=== PATIENT | female | born 1980 | race Caucasian/White ===

== ENCOUNTER 2018-08-13 11:00 | Inpatient (IN) | payer BC ==
[2018-08-13 11:47] VITALS: BMI 40.7
[2018-08-13] MEDS: Lactated Ringer's 1,000 ML IV SCH ×2 (12:24→20:41)
[2018-08-13] MEDS ORDERED: NS w/ Oxytocin 10 units 500 ML ONE (12:47)
[2018-08-13] MEDS ORDERED: Ondansetron PF 4 MG/2 ML Vial IVP PRN (12:51)
[2018-08-13] MEDS ORDERED: Butorphanol Tartrate 1 MG/ML VIAL SLOW IVP PRN (12:51)
[2018-08-13] MEDS ORDERED: Promethazine HCl 25 MG/ML VIAL IM PRN (12:51)
[2018-08-13] MEDS ORDERED: HYDROcodone/Acetaminophen 5/325 mg Tablet PO PRN ×2 (12:51)
[2018-08-13] MEDS ORDERED: Ibuprofen 800 MG TAB PO PRN (12:51)
[2018-08-13] MEDS ORDERED: Acetaminophen 500 MG TAB PO PRN (12:51)
[2018-08-13] MEDS ORDERED: NS / Oxytocin 40 units/1000ml 1,000 ML IV PRN (12:51)
[2018-08-13] MEDS ORDERED: Lidocaine 1% (PF) 30 ML VIAL SC PRN (12:51)
--- NOTE | 2018-08-13 12:55 | PDOC.LDHP ---
Labor and Delivery H&P Chief complaint: scheduled induction (for preeclampsia without severe features) HPI: Pt presented to office w mild range BP and 1+ protein, sent to L and D for IOL. No HOG TRADER sx. Current gestational age (weeks): 38 Due date: 08/24/18 Dating criteria: last menstrual period, first trimester ultrasound Grav: 1 Para: 0 Current complications: preeclampsia without severe features Abnormal US findings: No Past Medical History: hypothyroid depression Current medications: other (PNV, lamictal, escitalopram, levothyroxine) Previous surgical history: none Allergies/Adverse Reactions: Allergies Allergy/AdvReac Type Severity Reaction Status Date / Time No Known Drug Allergies Allergy Verified 08/13/18 11:39 Social history: none - Physical Exam Vital signs reviewed and normal: yes (BP 140/80s on intake) General: NAD, resting Heart: RRR Lungs: CTAB Abdomen: gravid Extremeties: no edema FHT: category 1 - Vaginal Exam cm dilated: 2 Effacement: 75% Station: -2 - OB Labs Blood type: AB RH: positive Antibody Screen: negative HIV: negative RPR: negative HEPSAg: negative 1 hour GCT: negative GBS: negative Rubella: immune Additional Labs: NIPT and AFP low risk - Assessment L&D Assessment: medically indicated induction - Plan Plan: admit to L&D, cervical ripening, labor augmentation if indicated, informed consent obtained, anesthesia consult for pain management -: A/P: G1 @ 38+ weeks IOL for PIH without severe features at this time, discussed initiation of magnesium if severe features noted during labor. Plan for pitocin and AROM, epidural at pt request.
[2018-08-13] MEDS ORDERED: NS w/ Oxytocin 10 units 500 ML IV SCH (13:00)
[2018-08-13 13:07] LABS: Hemoglobin 11.6 g/dL (12.0-16.0); Mean Corpuscular HGB CONC 34.5 g/dL (32.0-36.0); Mean Corpuscular Hemoglobin 28.5 pg (27.0-31.0); Mean Corpuscular Volume 82.5 fL (78.0-98.0); Mean Platelet Volume 8.7 fL (7.4-10.4); Platelet Count 218 thou/uL (130-400); RBC Distribution Width 13.6 % (11.5-14.5); Red Blood Cell (RBC) Count 4.08 mill/uL (4.20-5.40); White Blood Cell (WBC) Count 10.7 thou/uL (4.8-10.8)
[2018-08-13 13:47] LABS: ALT (SGPT) Less than 7 U/L (8-55); AST (SGOT) 10 U/L (5-34); Albumin 3.1 g/dL (3.5-5.0); Alkaline Phosphatase 126 U/L (40-150); Anion Gap 15 mmol/L (10-20); BUN (Urea Nitrogen) 10 mg/dL (7.0-18.7); Bilirubin, Total 0.3 mg/dL (0.2-1.2); Calc. Creatinine Clearance 187 mL/min (70-130); Carbon Dioxide 19 mmol/L (22-29); Chloride 107 mmol/L (98-107); Estimated GFR-MDRD Greater than 90; Globulin 3.6 g/dL (2.4-3.5); Glucose 92 mg/dL (70-105); Potassium 3.7 mmol/L (3.5-5.1); Protein, Total 6.7 g/dL (6.0-8.3); Sodium 137 mmol/L (136-145)
[2018-08-13 13:51] LABS: HBSAg Index 0.18 S/CO (0-0.99); Hep B Surf Ag Non-Reactive S/CO (NonReactive)
[2018-08-13 13:52] LABS: Syphilis Antibody Nonreactive (Nonreactive); Syphilis Antibody Index 0.04 S/CO (<1.00 Non-Reactive)
--- NOTE | 2018-08-13 17:02 | PDOC.LDPN ---
Labor & Delivery Progress Note - Subjective Subjective: comfortable - Objective Vital signs reviewed and normal: yes General: NAD Uterine fundus: non tender Dilation: 2 Effacement: 75% Station: -2 FHT: category 1 [place] contractions every: 2 AROM: clear fluid - Assessment (1) 38 weeks gestation of Code(s): Z3A.38 - 38 WEEKS GESTATION OF Current Visit: Yes Status : Acute (2) Preeclampsia Code(s): O14.90 - UNSPECIFIED PRE-ECLAMPSIA, UNSPECIFIED TRIMESTER Current Visit: Yes Status: Acute (3) Advanced maternal age (AMA) in Code(s): [id number] - Current Visit: Yes Status: Acute Plan: continue plan of care
[2018-08-13] MEDS: hydrALAZINE 20 MG/ML VIAL SLOW IVP PRN (18:46)
[2018-08-13] MEDS ORDERED: Magnesium Sulfate 20 gm/500 ml 20 GM/500 ML BAG ONE (19:06)
[2018-08-13] MEDS ORDERED: Fentanyl 4 mcg/Bup 0.1% Cadd 100 ML ONE (19:37)
[2018-08-13] MEDS ORDERED: Lidocaine 1.5% w/Epi 1:200K 30 ML VIAL (Epid Use) ONE ×2 (20:09→20:10)
[2018-08-13] MEDS ORDERED: Magnesium Sulfate 20 gm/500 ml 20 GM/500 ML BAG IVPB PRN (21:45)
[2018-08-13] MEDS ORDERED: Magnesium Sulfate 20 gm/500 ml 4 GM/100 ML BAG IVPB ONE (21:45)
[2018-08-14] MEDS ORDERED: Lactated Ringer's 500 ML IV PRN (00:21)
[2018-08-14] MEDS ORDERED: Acetaminophen 325 MG TAB PO PRN ×2 (00:21→09:46)
[2018-08-14] MEDS ORDERED: Promethazine HCl 25 MG/ML VIAL IM PRN ×2 (00:21→09:48)
[2018-08-14] MEDS ORDERED: Naloxone HCl 0.4 mg/ml Vial IVP PRN ×4 (00:21→09:48)
[2018-08-14] MEDS ORDERED: Hydrocerin (Eucerin) Cream 120 gm Jar TOP PRN (00:21)
[2018-08-14] MEDS ORDERED: ePHEDrine/0.9% NaCl/PF SYRINGE 50 mg/10 ml SLOW IVP PRN (00:21)
[2018-08-14] MEDS ORDERED: Ondansetron PF 4 MG/2 ML Vial IVP PRN ×3 (00:21→09:48)
[2018-08-14] MEDS ORDERED: diphenhydrAMINE 50 MG/ML VIAL IVP PRN ×2 (00:21→09:48)
[2018-08-14] MEDS ORDERED: Communication Order-Pharmacy FS SCH ×2 (00:30→10:00)
[2018-08-14] MEDS ORDERED: Fentanyl 4 mcg/Bupivacaine 0.1% Cassette 100 ML EPIDURAL SCH (00:30)
[2018-08-14] MEDS ORDERED: Fentanyl 4 mcg/Bup 0.1% Cadd 100 ML ONE ×2 (02:42→08:10)
[2018-08-14] MEDS: hydrALAZINE 20 MG/ML VIAL SLOW IVP PRN ×3 (03:12→21:52)
[2018-08-14] MEDS: Lactated Ringer's 1,000 ML IV SCH ×2 (08:14→15:20)
[2018-08-14] MEDS: NS w/ Oxytocin 10 units 500 ML IV SCH ×2 (08:14→15:20)
--- NOTE | 2018-08-14 08:29 | PDOC.LDPN ---
Labor & Delivery Progress Note - Subjective Subjective: comfortable - Objective Vital signs reviewed and normal: yes Abnormal vital signs: severe range BP over night General: NAD Uterine fundus: non tender Dilation: 8 Effacement: 90% Station: -1 FHT: category 1 [place] contractions every: 2-3 - Assessment (1) 38 weeks gestation of Code(s): Z3A.38 - 38 WEEKS GESTATION OF Current Visit: Yes Status : Acute (2) Preeclampsia Code(s): O14.90 - UNSPECIFIED PRE-ECLAMPSIA, UNSPECIFIED TRIMESTER Current Visit: Yes Status: Acute (3) Advanced maternal age (AMA) in Code(s): NSW2812 - Current Visit: Yes Status: Acute (4) Labor abnormality Code(s): O62.9 - ABNORMALITY OF FORCES OF LABOR, UNSPECIFIED Current Visit: Yes Status: Acute Plan: other -: 1. IOL for preeclampsia with magnesium started approx 1999 last night for sustained severe range BP, IV antihypertensive PRN severe range BP 2. Protracted labor-pt noted to be 8cm @ 0300, is 8cm and -1 with caput on exam now. Discussed CS now vs recheck in an hour with patient. Pt would like one more hour to see if cervical change can be achieved. Pt aware of risk and benefits of continued pitocin as well as 1CS. Will recheck in an hour and if unchanged to OR for 1CS.
[2018-08-14] MEDS ORDERED: Lidocaine 2% 10 ML INJ ONE (09:20)
[2018-08-14] MEDS ORDERED: Oxytocin 10 UNITS/ML VIAL ONE (09:24)
[2018-08-14] MEDS ORDERED: CEFAZOLIN 2 GM/50 ML BAG ONE (09:29)
[2018-08-14] MEDS ORDERED: Bicitra 30 ML UDCUP ONE (09:29)
[2018-08-14] MEDS ORDERED: Morphine PF 1 MG/ML SYR ONE (09:43)
[2018-08-14] MEDS ORDERED: Ropivacaine 0.2% 550 ML 750 ML NERVE BLCK SCH (09:45)
[2018-08-14] MEDS ORDERED: CEFAZOLIN/Water 2 GM/20 ML SYRINGE SLOW IVP SCH (09:45)
[2018-08-14] MEDS ORDERED: Bicitra 30 ML UDCUP PO SCH (09:45)
[2018-08-14] MEDS ORDERED: Bisacodyl 10 MG SUPP PR PRN (09:46)
[2018-08-14] MEDS ORDERED: diphenhydrAMINE 25 MG CAP PO PRN (09:46)
[2018-08-14] MEDS ORDERED: Calcium Gluconate 4.6 MEQ in Sodium Chloride 0.9% 100 ML IVPB PRN (09:46)
[2018-08-14] MEDS ORDERED: Simethicone Chewable 80 MG TAB PO PRN (09:46)
[2018-08-14] MEDS ORDERED: Adacel (T-DAP) 0.5 ML SYRINGE IM ONE (09:46)
[2018-08-14] MEDS ORDERED: Lanolin Ointment 7 GM TUBE TOP PRN (09:46)
[2018-08-14] MEDS ORDERED: Promethazine HCl 25 MG SUPP PR PRN (09:48)
[2018-08-14] MEDS ORDERED: HYDROmorphone 2 MG/ML VIAL SLOW IVP PRN (09:48)
[2018-08-14] MEDS ORDERED: Meperidine HCl/PF 25 MG/ML VIAL SLOW IVP PRN (09:48)
[2018-08-14] MEDS ORDERED: Eucerin (Mineral Oil/Petrolatum,White) 30 gm Jar TOP PRN (09:48)
[2018-08-14] MEDS ORDERED: Ondansetron HCl/PF 4 MG/2 ML Vial IVP PRN (09:48)
[2018-08-14] MEDS ORDERED: L&D-Morphine 4 MG/ML VIAL SLOW IVP PRN (09:48)
[2018-08-14] MEDS ORDERED: Naloxone HCl 0.4 mg/ml Vial IV PRN (09:48)
[2018-08-14] MEDS ORDERED: ePHEDrine/0.9% NaCl/PF SYRINGE 50 mg/10 ml ONE ×2 (09:55→13:09)
[2018-08-14] MEDS ORDERED: Bupivacaine 0.25% HCL 30 ML VIAL ONE (09:58)
[2018-08-14] MEDS ORDERED: Ketorolac Tromethamine 30 MG/ML VIAL IVP SCH (10:00)
[2018-08-14] MEDS ORDERED: NS / Oxytocin 40 units/1000ml 1,000 ML IV SCH (10:00)
[2018-08-14] MEDS ORDERED: Ropivacaine HCl/PF 750 ML in Premix Bag 1 BAG NERVE BLCK SCH (10:30)
--- NOTE | 2018-08-14 11:08 | PDOC.OPDEL ---
OB Operative/Delivery Note Delivery Dr/Surgeon: Seun Assist: Dashawn Pre-Delivery Diagnosis: medically indicated induction (severe PIH @ 38 weeks, arrest of active phase @ 8cm) Weeks gestation: 38 Anesthesia: epidural - Findings A Sex: male Weight: 5 lb 11 oz - 1 min: 6 - 5 min: 8 - Additional Findings/Plan Placenta delivered: manual removal findings: low transverse hysterotomy with extension (to left corner laterally) Estimated blood loss: EBL 800ml Compilations/Other Findings: left corner extension laterally, repaired w series of interrupted figure of 8 sutures. Floseal placed w hemostasis noted. Post delivery plan: recovery in LICU (w magnesium for 24hrs PP)
[2018-08-14] MEDS ORDERED: Azithromycin 1,000 MG in Sodium Chloride 0.9% 500 ML IVPB SCH (12:00)
[2018-08-14] MEDS: Magnesium Sulfate 20 gm/500 ml 20 GM/500 ML BAG IVPB SCH (14:19)
[2018-08-14] MEDS ORDERED: Ketorolac Tromethamine 30 MG/ML VIAL ONE (15:16)
[2018-08-14] MEDS: Ketorolac Tromethamine 30 MG/ML VIAL IVP PRN ×2 (15:18→23:42)
[2018-08-14] MEDS: Ibuprofen 800 MG TAB PO SCH (15:19)
[2018-08-14 15:25] LABS: Hemoglobin 10.6 g/dL (12.0-16.0); Mean Corpuscular HGB CONC 32.5 g/dL (32.0-36.0); Mean Corpuscular Hemoglobin 27.6 pg (27.0-31.0); Mean Corpuscular Volume 84.9 fL (78.0-98.0); Mean Platelet Volume 8.2 fL (7.4-10.4); Platelet Count 217 thou/uL (130-400); RBC Distribution Width 13.8 % (11.5-14.5); Red Blood Cell (RBC) Count 3.84 mill/uL (4.20-5.40)
[2018-08-14 15:55] LABS: ALT (SGPT) Less than 7 U/L (8-55); AST (SGOT) 14 U/L (5-34); Albumin 2.8 g/dL (3.5-5.0); Alkaline Phosphatase 122 U/L (40-150); Anion Gap 15 mmol/L (10-20); BUN (Urea Nitrogen) 6 mg/dL (7.0-18.7); Bilirubin, Total 0.5 mg/dL (0.2-1.2); Calc. Creatinine Clearance 170 mL/min (70-130); Calcium 7.3 mg/dL (7.8-10.44); Carbon Dioxide 16 mmol/L (22-29); Chloride 106 mmol/L (98-107); Estimated GFR-MDRD 82; Globulin 3.3 g/dL (2.4-3.5); Glucose 124 mg/dL (70-105); Potassium 3.9 mmol/L (3.5-5.1); Protein, Total 6.1 g/dL (6.0-8.3); Sodium 133 mmol/L (136-145)
--- NOTE | 2018-08-14 17:35 | OP ---
DATE OF PROCEDURE: 08/14/2018 PREOPERATIVE DIAGNOSES: 1. A 38-year-old G1 at 38 weeks gestation. 2. Preeclampsia with severe features on magnesium for seizure prophylaxis. 3. Advanced maternal age. 4. Arrest of active phase at 8 cm. POSTOPERATIVE DIAGNOSES: 1. A 38-year-old G1 at 38 weeks gestation. 2. Preeclampsia with severe features on magnesium for seizure prophylaxis. 3. Advanced maternal age. 4. Arrest of active phase at 8 cm. PROCEDURES PERFORMED: 1. Primary low transverse section. 2. Placement of On-Q nerve block pump. INVENTORY CONTROL SPECIALIST: Joseph Tamez MD. ANESTHESIA: Epidural. ANESTHESIOLOGIST: Dr. Ng. COMPLICATIONS: None. ESTIMATED BLOOD LOSS: 800 mL. QBL: Pending. FINDINGS: 1. Low transverse hysterotomy with extension of the left corner out laterally, repaired with at time of hysterotomy closure. 2. Normal-appearing tubes and ovaries. 3. Uterus with multiple serosal fibroids, largest approximately 1 cm. 4. Male . Apgars 6, 8, and 9. Weight 5 pounds and 11 ounces, to [facility]. 5. Surgical site, hemostatic. DESCRIPTION OF PROCEDURE: The patient was taken back to the OR with IV fluids running, and an epidural catheter that was previously placed. When she was in the OR, she was placed in dorsal supine position with a left lateral tilt. The abdomen was prepped and draped in normal fashion for section. After the abdomen was prepped and draped, the surgeons were scrubbed in and anesthesia was tested and found to be adequate. A Pfannenstiel skin incision was made with a scalpel. Skin incision was carried down through the subcutaneous layer until the fascia was reached. Once the fascia was reached, it was incised in superior lateral fashion using curved Brizuela scissors. Megan clamps were then placed at the superior border of the fascia, which was sharply and bluntly dissected off the rectus abdominis muscles in both caudad and cephalad direction allowing adequate space for delivery of the infant. The rectus muscles were bluntly entered. The peritoneum was bluntly entered and laterally. The Tito O retractor was placed into the peritoneal cavity for retraction, visualization, and protection of the wound. A bladder flap was created and the bladder was dissected away from the planned hysterotomy site. A low transverse hysterotomy was made with the scalpel. The hysterotomy was bluntly entered and stretched using the Irelnad maneuver. The was delivered without difficulty from the occiput posterior position through the hysterotomy. The cord was doubly clamped and cut. The nose and mouth were suctioned. The was handed off to special care nurses in attendance. Cord blood was collected. The placenta was delivered. Uterus was exteriorized, massaged to firm, and cleared of clot and debris with a clean dry sponge. The hysterotomy was inspected with an extension noted from the left lateral corner of the hysterotomy. Ring forceps clamps were placed over the corners of the incision for hemostasis. The hysterotomy was repaired using Monocryl suture in a running locked fashion. After the hysterotomy was closed, the left corner was inspected with a small area of bleeding noted at the serosa. Two additional [id number] sutures were placed in this corner with hemostasis noted. The hysterotomy was irrigated and suctioned dry. The hysterotomy was inspected again. FloSeal was applied to the left corner of the hysterotomy as well as along the hysterotomy site. Pressure was applied with a clean sponge and held for 3 minutes as prescribed. After 3 minutes, the clean sponge was lifted. The hysterotomy was inspected and no bleeding was noted. The Tito O retractor was removed from the abdominal cavity. The peritoneum was reapproximated with plain gut suture. The fascia and muscle were inspected with no areas of bleeding noted. Two On-Q catheter tips were placed through the subcutaneous tissues, through the fascia, and directed down toward the corners of the incision underneath the rectus fascia. The rectus fascia was then closed with PDS suture from corner to corner and tied separately in the midline. The On-Q catheters were primed with 0.25% Marcaine. The subcutaneous tissue was irrigated and dried. Any small areas of bleeding were controlled with Bovie cauterization. The subcutaneous tissue was reapproximated with plain gut suture. The skin was closed with 4-0 Monocryl and dressed with Dermabond dressing. The On-Q catheter tips were given as sterile dressing. The patient tolerated the procedure well. Ancef as well as azithromycin were ordered for surgical prophylaxis with the Ancef given during the case and azithromycin pending at the end of the case. The patient will remain on magnesium for seizure prophylaxis for approximately 24 hours and she has labs ordered for 1500 today to follow up her CBC and CMP as well as a magnesium level. Job ID: [id number]
--- NOTE | 2018-08-14 20:14 | OP ---
DATE OF PROCEDURE: 08/14/2018 The patient is a 38-year-old female who had a primary for arrest of labor. Primary surgeon is Dr. Sanjiv Kohli, please refer to her operative note for complete details. I functioned as commercial loan assistant. Job ID: [id number]
[2018-08-14] MEDS ORDERED: Docusate Calcium (SURFAK) 240 MG CAP PO SCH (21:00)
[2018-08-14] MEDS ORDERED: DOCOSAHEXAENOIC ACID PO SCH (21:00)
[2018-08-14] MEDS ORDERED: Meperidine HCl/PF 25 MG/ML VIAL IM PRN (22:00)
[2018-08-14] MEDS ORDERED: HYDROcodone/Acetaminophen 5/325 mg Tablet PO PRN ×2 (22:00)
[2018-08-15] MEDS: Magnesium Sulfate 20 gm/500 ml 20 GM/500 ML BAG IVPB SCH (00:13)
[2018-08-15] MEDS: Lactated Ringer's 1,000 ML IV SCH (03:18)
--- NOTE | 2018-08-15 08:18 | PDOC.PP ---
Post Progress Note Post Day #: 1 Subjective: doing well, no NV w clears, no CORRALES or blurry vision, just tired from Mag PO intake tolerated: yes Flatus: yes Ambulation: yes Vital Signs (12 hours) Pulse BP 08/14/18 21:52 96 187/88 H Weight Weight 245 lb MIld range BP since midnight. - Physical Examination General: NAD Respiratory: non-labored breathing Abdominal: no distention Fundus firm & at: below umb Skin: CS incision dry & intact, no rash Neurological: no gross focal deficits Psychiatric: A&Ox3, normal affect Result Diagrams: 08/14/18 15:05 08/14/18 15:05 Additional Labs: Post Labs Blood Type AB POSITIVE 08/13/18 12:24 Hep Bs Antigen Non-Reactive S/CO (NonReactive) 08/13/18 12:24 (1) 38 weeks gestation of Code(s): Z3A.38 - 38 WEEKS GESTATION OF Status: Acute (2) Preeclampsia Code(s): O14.90 - UNSPECIFIED PRE-ECLAMPSIA, UNSPECIFIED TRIMESTER Status: Acute (3) Advanced maternal age (AMA) in Code(s): [id number] - Status: Acute (4) Labor abnormality Code(s): O62.9 - ABNORMALITY OF FORCES OF LABOR, UNSPECIFIED Status: Acute - Assessment/Plan POD1 sp 1CS for arrest @ 8cm, nearing 24hrs PP magnesium for preeclampsia w severe features. Labs stable. Plan to DC mag this AM and advance orders. Will monitor for potential oral antihypertensive medication need.
[2018-08-15] MEDS ORDERED: Prenatal Vitamin 1 TAB PO SCH ×3 (09:00→09:12)
[2018-08-15 09:10] LABS: Hemoglobin 10.1 g/dL (12.0-16.0); Mean Corpuscular HGB CONC 33.1 g/dL (32.0-36.0); Mean Corpuscular Hemoglobin 27.7 pg (27.0-31.0); Mean Corpuscular Volume 83.7 fL (78.0-98.0); Platelet Count 201 thou/uL (130-400); Red Blood Cell (RBC) Count 3.65 mill/uL (4.20-5.40); White Blood Cell (WBC) Count 11.5 thou/uL (4.8-10.8)
[2018-08-15] MEDS ORDERED: HYDROcodone/Acetaminophen 5/325 mg Tablet PO PRN (09:12)
[2018-08-15] MEDS ORDERED: Adacel (T-DAP) 0.5 ML SYRINGE IM ONE (09:12)
[2018-08-15] MEDS ORDERED: Ondansetron PF 4 MG/2 ML Vial IVP PRN (09:12)
[2018-08-15] MEDS ORDERED: Simethicone Chewable 80 MG TAB PO PRN (09:12)
[2018-08-15] MEDS ORDERED: Ferrous Sulfate 325 MG TAB PO SCH (09:12)
[2018-08-15] MEDS ORDERED: Bisacodyl 10 MG SUPP PR PRN (09:12)
[2018-08-15] MEDS: HYDROcodone/Acetaminophen 5/325 mg Tablet PO PRN ×2 (13:46→21:28)
[2018-08-15] MEDS: Ibuprofen 800 MG TAB PO SCH ×2 (13:47→21:26)
[2018-08-15] MEDS: Escitalopram Oxalate 10 mg Tablet PO SCH ×2 (14:10→21:31)
[2018-08-15] MEDS: lamoTRIgine 25 MG TAB PO SCH ×3 (14:11→21:31)
[2018-08-15] MEDS: Docusate Calcium (SURFAK) 240 MG CAP PO SCH ×2 (14:11→21:26)
[2018-08-15] MEDS: Levothyroxine Sodium 50 MCG TAB PO SCH (14:11)
[2018-08-15] MEDS: Ferrous Sulfate 325 MG TAB PO SCH (21:27)
--- NOTE | 2018-08-16 06:21 | PDOC.PP ---
Post Progress Note Post Day #: 2 Subjective: Doing well. Pain well controlled with on Q pump. Ambulating, tolerating PO. PO intake tolerated: yes Flatus: yes Ambulation: yes Vital Signs (12 hours) Temp Pulse Resp BP Pulse Ox 08/16/18 03:55 98.1 F 79 20 146/86 H 08/15/18 19:55 98.2 F 86 16 136/72 95 Weight Weight 245 lb - Physical Examination General: NAD Respiratory: non-labored breathing Abdominal: lochia (normal), no distention, appropriately TTP Fundus firm & at: below umbilicus Extremities: negative homans (B) Skin: CS incision dry & intact, no rash Neurological: no gross focal deficits Psychiatric: A&Ox3, normal affect Result Diagrams: 08/15/18 08:26 08/14/18 15:05 Additional Labs: Post Labs Blood Type AB POSITIVE 08/13/18 12:24 Hep Bs Antigen Non-Reactive S/CO (NonReactive) 08/13/18 12:24 (1) 38 weeks gestation of Code(s): Z3A.38 - 38 WEEKS GESTATION OF Status: Acute (2) Advanced maternal age (AMA) in Code(s): [id number] - Status: Acute (3) Labor abnormality Code(s): O62.9 - ABNORMALITY OF FORCES OF LABOR, UNSPECIFIED Status: Acute (4) Preeclampsia Code(s): O14.90 - UNSPECIFIED PRE-ECLAMPSIA, UNSPECIFIED TRIMESTER Status: Acute - Assessment/Plan Doing well. BPs mild range. Continue to monitor. Anticipate d/c tomorrow.
[2018-08-16] MEDS: Ibuprofen 800 MG TAB PO SCH ×3 (08:18→20:59)
[2018-08-16] MEDS: Escitalopram Oxalate 10 mg Tablet PO SCH ×2 (08:18→21:01)
[2018-08-16] MEDS: lamoTRIgine 25 MG TAB PO SCH ×2 (08:18→21:00)
[2018-08-16] MEDS: Levothyroxine Sodium 50 MCG TAB PO SCH (08:18)
[2018-08-16] MEDS: Ferrous Sulfate 325 MG TAB PO SCH ×2 (08:19→21:01)
[2018-08-16] MEDS: Prenatal Vitamin 1 TAB PO SCH (10:19)
[2018-08-16] MEDS: Docusate Calcium (SURFAK) 240 MG CAP PO SCH ×2 (10:19→20:58)
[2018-08-16] MEDS: HYDROcodone/Acetaminophen 5/325 mg Tablet PO PRN (12:10)
[2018-08-16] MEDS ORDERED: NIFEdipine 10 MG CAP PO SCH (17:15)
--- NOTE | 2018-08-16 17:17 | PDOC.EVN ---
Event Note - Event Note Event Note: SHARON Ascencio: I was just called that the patient's BP has a systolic pressure of 180. No CORRALES. I will give procardia 10mg po x 1 now and do serial BPs for now. If not better, I will restart MagSulfate. I will order CMP and CBC now as well.
--- NOTE | 2018-08-16 18:03 | PDOC.EVN ---
Event Note - Event Note Event Note: BPs better after procardia..systolics at 130s to 140s.
[2018-08-16 18:42] LABS: Hemoglobin 10.1 g/dL (12.0-16.0); Mean Corpuscular HGB CONC 32.4 g/dL (32.0-36.0); Mean Corpuscular Hemoglobin 27.3 pg (27.0-31.0); Mean Corpuscular Volume 84.5 fL (78.0-98.0); Mean Platelet Volume 7.7 fL (7.4-10.4); Platelet Count 261 thou/uL (130-400); RBC Distribution Width 13.7 % (11.5-14.5); Red Blood Cell (RBC) Count 3.68 mill/uL (4.20-5.40); White Blood Cell (WBC) Count 12.1 thou/uL (4.8-10.8)
[2018-08-16 19:03] LABS: ALT (SGPT) 7 U/L (8-55); AST (SGOT) 13 U/L (5-34); Albumin 3.1 g/dL (3.5-5.0); Alkaline Phosphatase 112 U/L (40-150); Anion Gap 16 mmol/L (10-20); BUN (Urea Nitrogen) 6 mg/dL (7.0-18.7); Bilirubin, Total 0.5 mg/dL (0.2-1.2); Calc. Creatinine Clearance 187 mL/min (70-130); Calcium 8.7 mg/dL (7.8-10.44); Carbon Dioxide 20 mmol/L (22-29); Chloride 105 mmol/L (98-107); Estimated GFR-MDRD Greater than 90; Globulin 3.7 g/dL (2.4-3.5); Glucose 91 mg/dL (70-105); Potassium 4.1 mmol/L (3.5-5.1); Protein, Total 6.8 g/dL (6.0-8.3); Sodium 137 mmol/L (136-145)
--- NOTE | 2018-08-16 19:04 | PDOC.EVN ---
Event Note - Event Note Event Note: Labs ok
--- NOTE | 2018-08-17 00:12 | PDOC.EVN ---
Event Note - Event Note Event Note: BPs at 140/80s...asx. Isolated severe reading has not recurred.
[2018-08-17] MEDS: Ibuprofen 800 MG TAB PO SCH ×4 (03:06→21:54)
--- NOTE | 2018-08-17 05:09 | PDOC.PP ---
Post Progress Note Post Day #: 3 Subjective: No CORRALES, no visual changes, no RUQ PO intake tolerated: yes Flatus: yes Ambulation: yes Vital Signs (12 hours) Temp Pulse Resp BP 08/17/18 03:00 98.1 F 86 18 129/66 08/16/18 19:03 91 18 141/77 H 08/16/18 18:30 79 141/75 H 08/16/18 18:15 82 141/76 H 08/16/18 18:00 84 20 140/76 08/16/18 17:46 89 142/74 H 08/16/18 17:23 78 139/85 Weight Weight 245 lb - Physical Examination General: NAD Cardiovascular: no m/r/g Respiratory: clear to auscultation bilaterally Abdominal: + bowel sounds, lochia, no distention, appropriately TTP Extremities: negative homans (B) Skin: CS incision dry & intact (sutured), no rash Neurological: no gross focal deficits Psychiatric: A&Ox3, normal affect Result Diagrams: 08/16/18 18:12 08/16/18 18:12 Additional Labs: Post Labs Blood Type AB POSITIVE 08/13/18 12:24 Hep Bs Antigen Non-Reactive S/CO (NonReactive) 08/13/18 12:24 (1) delivery delivered Code(s): O82 - ENCOUNTER FOR DELIVERY WITHOUT INDICATION Status: Acute (2) Preeclampsia Code(s): O14.90 - UNSPECIFIED PRE-ECLAMPSIA, UNSPECIFIED TRIMESTER Status: Acute - Assessment/Plan A/P: POD 3 s/p Primary CS...one isolated high BP yesterday RX with procardia 10mg po X1...no other severe BPs, now at 130/90s- 140/90s: We will monitor BPs today and if below 150/90 by 1700, we will discharge to home with BP check in 72 hrs.
[2018-08-17] MEDS ORDERED: Lanolin Ointment 7 GM TUBE TOP PRN (06:29)
[2018-08-17] MEDS: Levothyroxine Sodium 50 MCG TAB PO SCH (06:30)
[2018-08-17] MEDS: Docusate Calcium (SURFAK) 240 MG CAP PO SCH ×2 (09:30→21:54)
[2018-08-17] MEDS: Escitalopram Oxalate 10 mg Tablet PO SCH ×2 (09:30→21:55)
[2018-08-17] MEDS: Prenatal Vitamin 1 TAB PO SCH (18:54)
[2018-08-17] MEDS: lamoTRIgine 25 MG TAB PO SCH ×2 (18:54→21:55)
[2018-08-17] MEDS: Ferrous Sulfate 325 MG TAB PO SCH ×2 (18:54→21:55)
[2018-08-17] MEDS: Labetalol 100 MG TAB PO SCH (19:57)
[2018-08-18] MEDS: Levothyroxine Sodium 50 MCG TAB PO SCH (06:20)
[2018-08-18] MEDS: Ibuprofen 800 MG TAB PO SCH ×2 (06:21→14:11)
[2018-08-18] MEDS: Ferrous Sulfate 325 MG TAB PO SCH (07:31)
[2018-08-18 07:38] VITALS: TEMP 97.9
--- NOTE | 2018-08-18 08:02 | PDOC.PP ---
Post Progress Note Post Day #: 4 Subjective: Doing well, no complaints this morning. PO intake tolerated: yes Flatus: yes Ambulation: yes Vital Signs (12 hours) Temp Pulse Resp BP BP Pulse Ox 08/18/18 07:38 97.9 F 84 20 156/80 H 97 08/18/18 03:29 156/74 H 08/18/18 01:12 141/71 H 08/17/18 22:38 137/69 08/17/18 20:30 98.6 F 89 18 157/82 H 100 Weight Weight 245 lb - Physical Examination General: NAD Respiratory: non-labored breathing Abdominal: lochia (normal), no distention, appropriately TTP Fundus firm & at: below umbilicus Extremities: negative homans (B) Skin: CS incision dry & intact, no rash Neurological: no gross focal deficits Psychiatric: A&Ox3, normal affect Result Diagrams: 08/16/18 18:12 08/16/18 18:12 Additional Labs: Post Labs Blood Type AB POSITIVE 08/13/18 12:24 Hep Bs Antigen Non-Reactive S/CO (NonReactive) 08/13/18 12:24 (1) 38 weeks gestation of Code(s): Z3A.38 - 38 WEEKS GESTATION OF Status: Acute (2) Advanced maternal age (AMA) in Code(s): [id number] - Status: Acute (3) Labor abnormality Code(s): O62.9 - ABNORMALITY OF FORCES OF LABOR, UNSPECIFIED Status: Acute (4) Preeclampsia Code(s): O14.90 - UNSPECIFIED PRE-ECLAMPSIA, UNSPECIFIED TRIMESTER Status: Acute - Assessment/Plan Started Labetalol 100mg BID yesterday. BPs improved overnight. Continue to monitor with possible d/c later this evening.
[2018-08-18] MEDS: Prenatal Vitamin 1 TAB PO SCH (09:14)
[2018-08-18] MEDS: Labetalol 100 MG TAB PO SCH (09:14)
[2018-08-18] MEDS: Docusate Calcium (SURFAK) 240 MG CAP PO SCH (09:14)
[2018-08-18] MEDS: lamoTRIgine 25 MG TAB PO SCH (09:14)
[2018-08-18] MEDS: Escitalopram Oxalate 10 mg Tablet PO SCH (09:14)
[2018-08-18 17:02] VITALS: BP 147/77
--- NOTE | 2018-08-19 01:33 | DIS ---
DATE OF ADMISSION: 08/13/2018 DATE OF DISCHARGE: 08/18/2018 ADMITTING DIAGNOSES: 1. Intrauterine at 38 weeks. 2. Preeclampsia without severe features. DISCHARGE DIAGNOSES: Preeclampsia with severe features, non-reassuring arrest of labor, primary . PROCEDURE: Primary . PRIMARY PROVIDER: Sanjiv Kohli DO, MS CONSULTATIONS: None. HOSPITAL COURSE: The patient is a 38-year-old female, who presented for a scheduled induction of labor at 38 weeks gestation for preeclampsia without severe features. Her induction was complicated by arrest of labor at 8 cm and preeclampsia with severe features requiring a primary . For complete details, please refer to Dr. Kohli's operative note. Her course has been complicated with 24 hours of magnesium for seizure prophylaxis and severe range of blood pressures requiring medication intervention. Last night on postoperative day #3, the patient was started on labetalol 100 mg twice a day for blood pressure control. The patient's blood pressure since that time has remained in the normal to mild range. Her most recent blood pressure was in the 140s/70s, pulse in the 90s, respiratory rate 20. Most recent temperature 97.9. The patient was seen this morning by Dr. Spicer, evaluated and found to be recuperating as expected without any concerning signs or symptoms. The patient will be discharged to home this evening at 5 o'clock should her blood pressures remain in the mild range. She will be going home with ibuprofen 600 mg to be taken 3 to 4 times a day as needed for pain control and Tylenol No.3 #10 to be taken every 4 hours as needed for pain control and labetalol 100 mg twice a day #30 quantity sufficient for 2 weeks. The patient has instructions to follow up with her primary OB, Dr. Sanjiv Kohli, in the next few days for blood pressure check and incision check. She also has instructions on how to remove the On-Q pump, which she has in place for pain control. The patient has instructions to follow up, seek medical attention should she experience increasing pain or bleeding, drainage or redness from her incision, or fever. Job ID: [id number]
== END 2018-08-18 17:45 | disposition home or self-care (01) | DRG 788 ==
LOC: L&D 11:15 → 3SE 08-15 13:26 → 3SW 08-17 18:27
PROVIDERS: ADMIT Obstetrics & Gynecology; ATTEND Obstetrics & Gynecology
PROC: 3E0P7VZ Introduction of Hormone into Female Reproductive, Via Natural or Artificial Opening (ICD-10-PCS; 2018-08-13)
PROC: 10907ZC Drainage of Amniotic Fluid, Therapeutic from Products of Conception, Via Natural or Artificial Opening (ICD-10-PCS; 2018-08-13)
PROC: 10D00Z1 Extraction of Products of Conception, Low, Open Approach (ICD-10-PCS; principal; 2018-08-14)
DX: O14.14 Severe pre-eclampsia complicating childbirth (principal); O62.1 Secondary uterine inertia; O34.13 Maternal care for benign tumor of corpus uteri, third trimester; D25.2 Subserosal leiomyoma of uterus; O99.284 Endocrine, nutritional and metabolic diseases complicating childbirth; E03.9 Hypothyroidism, unspecified; O99.344 Other mental disorders complicating childbirth; F32.9 Major depressive disorder, single episode, unspecified; Z3A.38 38 weeks gestation of pregnancy; Z79.899 Other long term (current) drug therapy; Z37.0 Single live birth
CPT/HCPCS: 36415; 51702; 80053; 83735; 85027; 86780; 86850; 86900; 86901; 87340; A4306; J0360; J0456; J1885; J2274; J2590; J2795; J3475; J7050; S0020

== ENCOUNTER 2020-12-02 08:11 | Outpatient (CLI) | payer BC | END 2020-12-02 08:12 | disposition home or self-care (01) | LOC: BICMAMMO 08:11 | PROVIDERS: ATTEND Physician Assistant | DX: Z12.31 Encounter for screening mammogram for malignant neoplasm of breast (principal); Z80.3 Family history of malignant neoplasm of breast | CPT/HCPCS: 77063; 77067 ==

== ENCOUNTER 2021-02-24 19:00 | Outpatient (CLI) | payer BC | END 2021-02-24 19:01 | disposition home or self-care (01) | LOC: SLEEPLAB 19:00 | PROVIDERS: ATTEND Physician Assistant | DX: G47.33 Obstructive sleep apnea (adult) (pediatric) (principal); R06.83 Snoring; F41.9 Anxiety disorder, unspecified; F32.9 Major depressive disorder, single episode, unspecified; G47.00 Insomnia, unspecified; E66.9 Obesity, unspecified; Z68.41 Body mass index [BMI] 40.0-44.9, adult | CPT/HCPCS: 95806 ==

== ENCOUNTER 2023-12-18 08:01 | Outpatient (CLI) | payer BC | END 2023-12-18 08:02 | disposition home or self-care (01) | LOC: BICMAMMO 08:01 | PROVIDERS: ATTEND Nurse Practitioner Family | DX: Z12.31 Encounter for screening mammogram for malignant neoplasm of breast (principal); Z80.3 Family history of malignant neoplasm of breast | CPT/HCPCS: 77063; 77067 ==